=== PATIENT | female | born 1975 | race African-American/Black ===

== ENCOUNTER 2020-12-22 06:07 | Day surgery (SDC) | payer OTHER ==
[~2020-12-22] VITALS: Ht 170.2 cm; Wt 165.6 kg
[2020-12-22 07:42] VITALS: BP 156/86
[2020-12-22 10:46] VITALS: BP 156/86
--- NOTE | 2020-12-22 11:25 | O ---
[facility] [place] [address] OPERATIVE REPORT Name: CECY GRULLON Room #: 150-1 [facility]..#: [id number] Admission: 12/22/20 Attend Phys: Zack Robles MD Discharge: Date of : 71 Report #: [id number] THIS REPORT FOR: cc: FAM - Family physician unknown Katarzyna Perez MD,Zack Dee MD ~ DOC #: [id number] Zack Robles MD DATE OF SERVICE: 12/22/2020 SERVICE: Orthopedics. FACILITY: [facility]. SURGEON: Zack Robles MD FINISHING SUPERVISOR [employer] SHEETS: Nicolasa Anne NP INDICATIONS FOR FINISHING SUPERVISOR [employer] SHEETS: Extremity positioning, arthroscope management, suture management and assistance with repair. PREOPERATIVE DIAGNOSES: 1. Right shoulder pain. 2. Right shoulder rotator cuff tear. 3. Right shoulder impingement syndrome. 4. Right shoulder acromioclavicular joint arthrosis. POSTOPERATIVE DIAGNOSES: 1. Right shoulder pain. 2. Right shoulder rotator cuff tear involving supraspinatus and subscapularis. 3. Right shoulder impingement syndrome. 4. Right shoulder acromioclavicular joint arthrosis. 5. Additional right shoulder biceps tendon tear. PROCEDURE PERFORMED: 1. Right shoulder arthroscopic rotator cuff repair. 2. Right shoulder arthroscopic biceps tenodesis. 3. Right shoulder arthroscopic distal clavicle excision. 4. Right shoulder arthroscopic subacromial decompression. 5. Extensive arthroscopic debridement, right shoulder. COMPLICATIONS: None. DRAINS: None. SPECIMENS: None. [facility] [address] [place] [address] OPERATIVE REPORT Name: CECY GRULLON Room #: 150-1 [facility]..#: [id number] Admission: 12/22/20 Attend Phys: Zack Robles MD Discharge: Date of : 71 Report #: [id number] ANESTHESIA: General. FINDINGS: 1. Full thickness leading edge supraspinatus tear, treated with double loaded 4.75 mm Graham and Nephew Healicoil suture anchor with lateral row MultiFix. 2. Upper border subscapularis tear with a partial biceps tendon tear, treated with tenodesis and upper border subscapularis repair with triple-loaded Healicoil anchor. 3. Intact articular cartilage. 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 We treated her conservatively including rest, activity modifications, physical therapy, oral medicines and she had partial improvement, but not complete and she was unable to return to her full work capacity and she is indicated for surgical treatment. MRI showed rotator cuff tear and her exam suggested potential biceps as well as subscapularis involvement. Risks, benefits, alternatives and indications for surgery were discussed with her in detail. The risks include but not limited to pain, bleeding, infection, injuring nerves or blood vessels, persistent pain despite surgical intervention, failure of any repair, progression of preexisting chondral injury, stiffness, need for further surgery as well as complications related to anesthesia. Despite the risks, she wished to proceed. DESCRIPTION OF PROCEDURE: After right upper extremity was correctly identified in the preoperative holding area as the operative extremity, the patient was taken to the operating room. General anesthesia was induced without complication. She was seated in the beach chair position, was padded appropriately. Prophylactic antibiotics with 3 grams of Ancef were administered at appropriate time. Right arm was prepped and draped in standard sterile fashion. A timeout procedure performed. Standard posterior viewing portal was established followed by an anterior interval portal. Diagnostic arthroscopy revealed synovitis in the rotator interval as well as superiorly and along the rotator cuff and some fraying of the labrum. The shaver was used to debride the rotator interval, the undersurface of the cuff and then the anterior aspect of the shoulder where there was some partial thickness chondromalacia at the chondral labral junction anteriorly. Articular cartilage was otherwise intact. The fraying of the posterior labrum was debrided and the biceps was evaluated as was the subscapularis. There was a high-grade upper border subscapularis tear as well as partial thickness tear of the biceps tendon with some associated biceps instability and there was a full thickness tear of the supraspinatus. [facility] [address] [place] [address] OPERATIVE REPORT Name: CECY GRULLON Room #: 150-1 [facility].#: [id number] Admission: 12/22/20 Attend Phys: Zack Robles MD Discharge: Date of : 71 Report #: [id number] A large diameter cannula was introduced through the anterior interval and then a curette and shaver were used to prepare the tuberosity footprint for the subscapularis and then the triple-loaded Graham and Nephew Healicoil suture anchor was placed in the upper border subscapularis footprint on the humerus. Three sutures were used in the following fashion: Two sutures were used with mattress sutures to repair the upper border of the subscapularis and the third suture was used for the biceps tenodesis. A spinal needle was used to kerline the biceps tendon for its anatomic position and then it was tenotomized for later tenodesis. The third suture then used for the tenodesis with one limb passed through the biceps and the second limb passed around, allowing for a cerclage suture. The tenodesis was then tied securely and then two subscapularis stitches were tied and then a shaver was used to complete the debridement medially and laterally. The biceps tendon stump was resected as well with a shaver. The scope was then placed in the subacromial space. There was significant thickening of the bursa and a thorough bursectomy was then performed, working anterior to posterior and then laterally. The supraspinatus tear could be visualized. The greater tuberosity was prepared for tendon repair and then a Graham and Nephew double loaded Healicoil suture anchor was placed in the footprint with a tape and suture. A dual mattress sutures were then placed and anatomic reduction was achieved. There was some elevation of the lateral aspects, so we made plans for a double row. Two of the limbs were then back passed through the tendon in order to have 4 suture spread and then the Graham and Nephew MultiFix suture anchor was used to perform the lateral row repair. The tendon was noted to moved in one unit at this point and debridement was completed. The bur was then used to perform a subacromial decompression with the posterior cutting block technique to eliminate the acromial hook on the anterolateral aspect of the humerus that was noted on direct arthroscopic visualization. Then, we turned our attention towards the acromioclavicular joint. The bur was used to perform a distal clavicle excision with care taken to ensure that 1 cm was resected and then the bony debris was lavaged out of the shoulder. Final debridement was completed. Instruments were removed. Portal sites were closed. Sterile dressing was applied. The patient was awakened from anesthesia and taken to recovery room in stable condition. There were no complications and all counts were recorded as correct. Postoperative plan will be for 6 weeks of sling immobilization. We will begin her physical therapy at 3 weeks postoperatively. Zack Robles MD [facility]/[address] [address] OPERATIVE REPORT Name: CECY GRULLON Room #: 150-1 [facility]#: [id number] Admission: 12/22/20 Attend Phys: Zack Robles MD Discharge: Date of : 71 Report #: [id number] <ELECTRONICALLY SIGNED> By: Zack Robles MD 12/22/20 1125 [id number] Zack Robles MD /nt
== END 2020-12-22 11:50 | disposition home or self-care (01) ==
LOC: OR 06:07 → TBA 06:11 → OR 09:42
PROVIDERS: ATTEND Orthopaedic Surgery Sports Medicine
DX: M25.511 Pain in right shoulder (principal); S46.011A Strain of muscle(s) and tendon(s) of the rotator cuff of right shoulder, initial encounter; M19.011 Primary osteoarthritis, right shoulder; M25.811 Other specified joint disorders, right shoulder; Z98.890 Other specified postprocedural states; Z79.899 Other long term (current) drug therapy; X58.XXXA Exposure to other specified factors, initial encounter; Y93.89 Activity, other specified; Y92.89 Other specified places as the place of occurrence of the external cause; Y99.8 Other external cause status
CPT/HCPCS: 50010; 50101; 50172; 50386; 50417; 50935; 51320; 52001; 52282; 52313; 56527; 57103; 57128; 58139; 58194; 58196; 58575; 58576; 58577; 58590; 62110; 62900; 70005